=== PATIENT | female | born 1980 | race Caucasian/White ===

== ENCOUNTER 2018-09-28 06:40 | Inpatient (IN) | payer BC ==
[2018-09-28] VITALS (7 sets, daily range): BP systolic 122–147; BP diastolic 63–88; PULSE 60–67; RESP 16–18; Ht 162.6 cm; Wt 80.5 kg
[~2018-09-28] VITALS: Ht 162.6 cm; Wt 80.5 kg
[2018-09-28] MEDS ORDERED: OXYTOCIN 30 UNITS/LR 500 ML IV PRN ×2 (07:30→10:00)
[2018-09-28] MEDS ORDERED: CEFAZOLIN 2 GM/50 ML (PMX) 50 ML IVPB SCH (07:30)
[2018-09-28] MEDS ORDERED: OXYTOCIN 30 UNITS/LR 500 ML IV SCH ×2 (07:30→09:48)
[2018-09-28] MEDS ORDERED: CARBOPROST 250 MCG INJ IM PRN ×2 (07:30→10:00)
[2018-09-28] MEDS ORDERED: MISOPROSTOL 200 MCG TAB PR PRN ×2 (07:30→10:00)
[2018-09-28] MEDS ORDERED: METHYLERGONOVINE 0.2 MG INJ IM PRN ×2 (07:30→10:00)
[2018-09-28] MEDS ORDERED: AZITHROMYCIN 500MG/NS (PMX) 250 ML IV SCH (07:30)
--- NOTE | 2018-09-28 07:44 | PREAC ---
Date/Time of Note Date/Time of Note DATE: 09/28/18 TIME: 07:43 Anesthesia Eval and Record Evaluation Time Pre-Procedure Interview DATE: 09/28/18 TIME: 07:43 Age 38 Sex female NPO: 8 hrs Preoperative diagnosis labor pain Planned procedure csection, BTL Past Medical History Past Medical History: None Surgery & Anesthesia Issues No known issue Meds Anticoagulation: No Beta Lionel within 24 hr: No Reason Beta Lionel not given: Pt. not on B-Lionel Current Medications Lactated Ringer's 1,000 ml @ 125 mls/hr Q8H IV ; Start 09/28/18 at 07:17 Cefazolin Sodium/ Dextrose 50 ml @ 100 mls/hr ONCE IVPB ; Start 09/28/18 at 07:30 Oxytocin/Lactated Ringer's 500 ml @ 125 mls/hr POST IV ; Start 09/28/18 at 07:30 Azithromycin 250 ml @ 250 mls/hr ONCE IV ; Start 09/28/18 at 07:30 Oxytocin/Lactated Ringer's 500 ml @ 0 mls/hr ONCE PRN IV .VAGINAL BLEEDING; Start 09/28/18 at 07:30 Methylergonovine Maleate (Methergine) 0.2 mg ONCE PRN IM .VAGINAL BLEEDING; Start 09/28/18 at 07:30 Carboprost Tromethamine (Hemabate) 250 mcg ONCE PRN IM .VAGINAL BLEEDING; Start 09/28/18 at 07:30 Misoprostol (Cytotec) 1,000 mcg ONCE PRN NH .VAGINAL BLEEDING; Start 09/28/18 at 07:30 Meds reviewed: Yes Allergies Coded Allergies: No Known Allergy (Unverified , 09/28/18) Allergies Reviewed: Yes Labs/Studies Labs Reviewed: Reviewed by anesthesiologist Result Diagram: 09/28/18 0720 Laboratory Tests 09/28/18 07:20 test: Positive Studies: ECG (n/a), CXR (n/a) Pre-procedure Exam Last vitals Vital Signs Date Temp Pulse Resp B/P (MAP) Pulse Ox O2 O2 Flow FiO2 Time Delivery Rate 09/28/18 97.6 67 16 146/75 Room Air 07:02 (98) Airway: Adequate mouth opening Mallampati: Mallampati I Teeth: Normal Lung: Normal Heart: Normal ASA Physical Status ASA physical status: 2 Emergency: None Planned Anesthetic Neuraxial: Spinal Planned Pain Management Single shot nerve block Pre-operative Attestations Prior to commencing anesthesia and surgery, the patient was re-evaluated, there was verification of: *The patient's identity *The results of appropriate recent lab work and preoperative vital signs *The above evaluation not changing prior to induction *Anesthetic plan, risk benefits, alternative and complications discussed with patient/family; questions answered; patient/family understands, accepts and wishes to proceed. BETSY ROJAS MD Sep 28, 2018 07:44
[2018-09-28] MEDS: LACTATED RINGER'S 1,000 ML IV SCH (07:57)
[2018-09-28] MEDS ORDERED: morphine SULFATE/PF (10 MG/10 ML) INJ ONE (08:24)
[2018-09-28] MEDS ORDERED: METOCLOPRAMIDE 10 MG INJ ONE (08:24)
[2018-09-28] MEDS ORDERED: ONDANSETRON 4 MG INJ ONE (08:24)
[2018-09-28] MEDS ORDERED: OXYTOCIN 30 UNITS/LR 500 ML IV ONE ×2 (08:24→09:20)
[2018-09-28] MEDS ORDERED: EPHEDrine 25 MG/5 ML SYG ONE (08:39)
--- NOTE | 2018-09-28 09:45 | OPPN ---
Date/Time of Note Date/Time of Note DATE: 09/28/18 TIME: 09:42 Operative Report Planned Procedure Procedure date Sep 28, 2018 Procedure(s) repeat low transverse CD with bilateral tubal ligation clifton method Performed by see signature line Offset Duplicating Machine Operator: RAQUEL MOSQUEDA M.D. 2nd Offset Duplicating Machine Operator none Anesthesiologist: BETSY ROJAS MD Pre-procedure diagnosis iup at 39 wks ga, ama, in labor, previous CD, desire elective CD with bilateral tubal sterilization [id number] Anesthesia Type: [id number] spinal Post-Procedure Post-procedure diagnosis same Findings a viable female 9/9 weight 8lb 6 oz. khadar uterus tubes and ovaries Estimated Blood Loss: 500 - 600 mls Specimen(s) portions of right and left fallopian tubes Grafts/Implant(s) none Complication(s) none TWYLA HUGHES MD Sep 28, 2018 09:45
[2018-09-28] MEDS ORDERED: DIPHENHYDRAMINE 50 MG INJ IV PRN ×2 (10:00)
[2018-09-28] MEDS ORDERED: NACL 0.9% 3 ML SYG IV SCH (10:00)
[2018-09-28] MEDS ORDERED: NALOXONE (0.4 MG/ML) INJ IV PRN (10:00)
[2018-09-28] MEDS ORDERED: ONDANSETRON 4 MG INJ IV PRN ×2 (10:00)
[2018-09-28] MEDS ORDERED: MEPERIDINE 25 MG INJ IV PRN (10:00)
[2018-09-28] MEDS ORDERED: morphine 2 MG INJ IV PRN ×6 (10:00)
[2018-09-28] MEDS ORDERED: LANOLIN HPA 1 PKT TOP PRN (10:00)
--- NOTE | 2018-09-28 11:31 | OPR ---
DATE OF OPERATION: 09/28/2018 PREOPERATIVE DIAGNOSIS: Intrauterine at 39 weeks gestational age, advanced maternal age, i n labor, previous , desires elective repeat delivery with bilateral tubal steriliza tion. POSTOPERATIVE DIAGNOSIS: Intrauterine at 39 weeks gestational age, advanced maternal age, i n labor, previous , desires elective repeat delivery with bilateral tubal steriliza tion. OPERATION PERFORMED: Repeat low transverse delivery with bilateral tubal ligation, Kandice method. SURGEON: Harley Lo MD ELECTRIC MOTOR WINDER: Dr. Vitaly Clark. ANESTHESIOLOGIST: Anne Gardner MD. ANESTHESIA: Spinal. ESTIMATED BLOOD LOSS: 500 mL. PATHOLOGY: Portion of the right and left fallopian tube. FINDINGS: A viable female, 9 and 9 respectively at 1 and 5 minutes, weight 8 pounds 6 ounces. Normal uterus, tubes and ovaries. DESCRIPTION OF PROCEDURE: After explaining the risks, benefits and alternatives, the patient had con sent signed in chart, the patient was taken to the operating where spinal anesthesia was found to be adequate. She was then prepared and draped in normal sterile position with a leftward tilt. A Pfann enstiel incision was made with a scalpel and carried to the underlying of the fascia. The fascia was incised in midline, incision extended laterally with Sanchez scissors. The superior aspect of the fasc ial incision was grasped with curved clamps, elevated and the underlying rectus muscle dissected blun tly. Attention was then turned to the inferior aspect of the incision which in similar fashion was g rasped, tented up with curved clamps and the rectus muscles dissected off bluntly. The rectus muscle was in midline, peritoneum identified, tented up and entered sharply with Metzenbaum sciss ors. This incision was extended superiorly with good visualization of the bladder. The bladder blad e was then inserted and the lower uterine segment incised in a transverse fashion with a scalpel and extended laterally. The head was delivered atraumatically. Nose and mouth were suctioned and cord clamped and cut. The infant was handed off to awaiting engineering agent. The placenta was then rem julius and cleared of all clots and debris. The uterine incision was repaired with 0 Monocryl in a run eric locked fashion. A second layer of same suture was used for imbrication and excellent hemostasis . At this point, a Mulvane was used to grasp the right fallopian tube 4 cm from the cornual region. A 3 cm segment of tube was ligated and excised. Good hemostasis was noted. Similarly, the left fallop mars tube was ligated and excised. The uterus was returned to the abdomen. The gutters were cleared of all clots. The peritoneum and rectus abdominis muscles were reapproximated with 2-0 Monocryl in a n interrupted fashion. The fascia was reapproximated with 0 Vicryl in a running fashion. The subcut aneous tissue was reapproximated with 2-0 plain gut in a running fashion. The skin was closed with a bsorbable emmy. The patient tolerated the procedure well. All counts were correct. The patient was taken to recovery room in stable condition. Dictated By: HARLEY HICKS/WALTER Conf#: [id number] DID#: [id number]
--- NOTE | 2018-09-28 14:56 | PREOPHP ---
DATE OF ADMISSION: 09/28/2018 HISTORY OF PRESENT ILLNESS: Ms. Gongora is a 38-year-old 5, para 4, EDC 10/04/2018 intrauterin e at 39 weeks and 1 day gestational age, presented to triage complaining of regular contrac tions. She has a significant history of 1 previous and desires elective repeat de livery with double tubal sterilization. She currently denies any vaginal bleeding or discharge. Her care took place at [facility]. PAST MEDICAL HISTORY: None. MEDICATIONS: vitamins. PAST SURGICAL HISTORY: x1 previous section. OBSTETRICAL HISTORY: x3 vaginal deliveries, x1 delivery. GYNECOLOGIC HISTORY: 11, regular 3 to 4 days. Denies any sexually transmitted infections. Sexually active with 1 partner. SOCIAL HISTORY: Denies any smoking, drugs or alcohol. FAMILY HISTORY: None. REVIEW OF SYSTEMS: All within normal except history of present illness. PHYSICAL EXAMINATION: HEENT: Within normal. LUNGS: CTA bilateral. CARDIOVASCULAR: S1, S2, regular rhythm. ABDOMEN: Gravid, nontender. Negative CVA bilateral. EXTREMITIES: Negative edema. No calf tenderness. PELVIC: Vaginal exam 3 cm dilated, 50% effaced, -2 station. heart tracing category 1, typical regular contractions. ASSESSMENT: A 38-year-old 5, para 4, intrauterine at 39 weeks and 1 day gestation al age, advanced maternal age, in labor, previous x1, desires elective repeat deli very with bilateral tubal sterilization. Declined vaginal after . PLAN: Consent for repeat delivery with bilateral tubal sterilization. Risks, benefits and alternatives explained. All questions were answered. Dictated By: TWYLA HICKS/WALTER Conf#: [id number] DID#: [id number]
[2018-09-28] MEDS: CEFAZOLIN 2 GM/50 ML (PMX) 50 ML IVPB SCH (16:35)
[2018-09-29] MEDS: CEFAZOLIN 2 GM/50 ML (PMX) 50 ML IVPB SCH ×2 (00:13→08:03)
[2018-09-29 00:16] VITALS: BP 109/63; PULSE 71; RESP 20
[2018-09-29 03:45] VITALS: BP 107/62; PULSE 72; RESP 20
[2018-09-29 08:00] VITALS: BP 94/55; PULSE 73; RESP 18
[2018-09-29] MEDS ORDERED: CEFAZOLIN 2 GM/50 ML (PMX) 50 ML IVPB SCH (08:00)
--- NOTE | 2018-09-29 08:33 | PAC ---
Date/Time of Note Date/Time of Note DATE: 09/29/18 TIME: 08:33 Post-Anesthesia Notes Post-Anesthesia Note Last documented vital signs Vital Signs Date Temp Pulse Resp B/P (MAP) Pulse Ox O2 O2 Flow FiO2 Time Delivery Rate 09/29/18 99.0 72 20 107/62 98 Room Air 03:45 (77) Activity: WNL Respiratory function: WNL Cardiovascular function: WNL Mental status: Baseline Pain reasonably controlled: Yes Hydration appropriate: Yes Nausea/Vomiting absent: No BETSY ROJAS MD Sep 29, 2018 08:33
--- NOTE | 2018-09-29 08:34 | OPPN ---
Date/Time of Note Date/Time of Note DATE: 09/29/18 TIME: 08:33 Anesthesia Follow up Anesthesia Follow up Last documented vital signs Vital Signs Date Temp Pulse Resp B/P (MAP) Pulse Ox O2 O2 Flow FiO2 Time Delivery Rate 09/29/18 99.0 72 20 107/62 98 Room Air 03:45 (77) Respiratory function: WNL Cardiovascular function: WNL Comments A 38 year s/p spinal with duramorph fo [post op pain. POD #1 is doing fine. No pain, itching, neural deficit, headache, N/V, SOB. BETSY ROJAS MD Sep 29, 2018 08:34
[2018-09-29] MEDS ORDERED: OXYCODONE/ACETAMINOPHEN (5/325) TAB PO PRN (10:00)
[2018-09-29] MEDS: IBUPROFEN 600 MG TAB PO SCH ×3 (10:32→23:51)
[2018-09-29 16:15] VITALS: RESP 18
[2018-09-29 16:20] VITALS: BP 103/61; PULSE 78; RESP 16
[2018-09-29 21:00] VITALS: BP 98/53; PULSE 79; RESP 18
[2018-09-29] MEDS: FERROUS SULFATE (EC) 325 MG TAB PO SCH (21:02)
[2018-09-30] MEDS: OXYCODONE/ACETAMINOPHEN (5/325) TAB PO PRN ×2 (01:57→11:31)
[2018-09-30 03:24] VITALS: BP 111/66; PULSE 61; RESP 18
[2018-09-30] MEDS: IBUPROFEN 600 MG TAB PO SCH ×4 (05:36→23:58)
[2018-09-30 08:30] VITALS: BP 109/65; PULSE 72; RESP 18
[2018-09-30] MEDS: FERROUS SULFATE (EC) 325 MG TAB PO SCH ×2 (09:33→20:54)
[2018-09-30 18:02] VITALS: BP 133/77; PULSE 82; RESP 18
--- NOTE | 2018-09-30 20:37 | QN ---
Documentation Comment progress note pod 1 patient seen and evaluated no complaints vs stable afebrile ab c/d/i no distention exrtremity no edema no calf tenderness a/ sp cs pod 1 stable afebrile p encourage ambulation TWYLA HUGHES MD Sep 30, 2018 20:37
[2018-09-30] MEDS: SENNA/DOCUSATE NA (8.6MG/50MG) TAB PO SCH (20:54)
[2018-09-30 20:55] VITALS: BP 129/80; PULSE 80; RESP 18
[2018-09-30] MEDS ORDERED: SENNA TAB PO SCH (21:00)
[2018-10-01 03:30] VITALS: BP 119/70; PULSE 81; RESP 18
[2018-10-01] MEDS: IBUPROFEN 600 MG TAB PO SCH ×4 (06:00→23:43)
--- NOTE | 2018-10-01 07:11 | QN ---
Documentation Comment progress note pod 3 patient seen and evaluated no complaints vs stable afebrile ab c/d/i no distention exrtremity no edema no calf tenderness a/ sp cs pod 3 stable afebrile p encourage ambulation dulcolax suppostitory discharge home tomorrow TWYLA HUGHES MD Oct 01, 2018 07:11
--- NOTE | 2018-10-01 07:13 | PD.PPDC ---
FIELD SUPERVISOR Discharge Instruction Condition [id number] Patient Condition: Ptvhx3e Fair Diet Qavwu2Ls Diet: Scxzt7l Resume Regular Diet Activity/Restrictions [id number] Activity: Pkoyp7b Normal Activity May Shower Ztlrt1Cz Restrictions: Pdjfh5f No Exercising No Lifting No Driving No Sexual Activity Nothing in the Vagina No Norris No Tampons, douche Wound/Drain Care Instructions Wraft5Pm Wound/Drain Care Instructions: Ijfzm2f Wash with soap and water Keep clean and dry Follow-up Follow-up with Physician: 2, Week/Weeks Return to clinic for [id number] DRAFTER Instructions: Vnonb3b Fever greater than 101 Chills Worsening abdominal pain Excessive Vaginal Bleeding More than 2 pads per hour Unable to tolerate diet Vathw4Gm OB Instructions: Vkgtr2w Breast Tenderness Depression Blurried Vision Headache [id number] Surgical Instructions: Nazhg5u Incisional Drainage Incisional Redness TWYLA HUGHES MD Oct 01, 2018 07:13
[2018-10-01] MEDS ORDERED: BISACODYL 10 MG SUPP PR ONE (07:30)
[2018-10-01 08:00] VITALS: BP 130/83; PULSE 80; RESP 18
[2018-10-01] MEDS: FERROUS SULFATE (EC) 325 MG TAB PO SCH ×2 (09:33→21:01)
[2018-10-01] MEDS: SENNA/DOCUSATE NA (8.6MG/50MG) TAB PO SCH ×2 (09:33→21:01)
[2018-10-01 15:50] VITALS: BP 134/78; PULSE 80; RESP 18
[2018-10-01 20:10] VITALS: BP 129/79; PULSE 70; RESP 18
[2018-10-02 03:45] VITALS: BP 111/64; PULSE 71; RESP 19
[2018-10-02] MEDS: IBUPROFEN 600 MG TAB PO SCH ×2 (05:27→12:26)
[2018-10-02] MEDS ORDERED: BISACODYL 10 MG SUPP PR ONE (05:30)
--- NOTE | 2018-10-02 06:37 | DS ---
DATE OF ADMISSION: 09/28/2018 DATE OF DISCHARGE: 10/02/2018 PRIMARY DIAGNOSIS: Intrauterine at 39 weeks gestational age, advanced maternal age, in lab or, previous , desires elective repeat delivery with bilateral tubal sterilization. PROCEDURE: Repeat low transverse delivery with bilateral tubal ligation. CONDITION ON DISCHARGE: Stable. ACTIVITY: None per vagina, no heavy lifting x6 weeks. DIET: Regular. MEDICATIONS ON DISCHARGE: 1. Motrin. 2. Percocet. 3. Iron. 4. Colace. DISCHARGE SUMMARY: Ms. Kerry Gongora underwent a repeat low transverse delivery with bilatera l tubal ligation on 09/28/2018. She had a viable female, 9 and 9 respectively at 1 and 5 minut es, weight 8 pounds 6 ounces. She had an uneventful postop day #1, #2, and #3. She will be discharg ed on postop day #4 after she has a bowel movement. She denies any headache, nausea, vomiting, short ness of breath, or visual changes. She will follow up in the clinic in 2 weeks for /postop care. Dictated By: TWYLA HICKS/WALTER Conf#: [id number] DID#: [id number]
[2018-10-02 08:11] VITALS: BP 121/74; PULSE 73; RESP 18
[2018-10-02] MEDS: FERROUS SULFATE (EC) 325 MG TAB PO SCH (09:09)
[2018-10-02] MEDS: SENNA/DOCUSATE NA (8.6MG/50MG) TAB PO SCH (09:09)
[2018-10-02] MEDS: OXYCODONE/ACETAMINOPHEN (5/325) TAB PO PRN (14:16)
== END 2018-10-02 17:59 | disposition home or self-care (01) | DRG 785 ==
LOC: OBT 06:40 → L-D 06:40 → OBT 07:10 → L-D 08:44 → PP1 12:06
PROVIDERS: ADMIT Obstetrics & Gynecology; ATTEND Obstetrics & Gynecology
PROC: 0UB70ZZ Excision of Bilateral Fallopian Tubes, Open Approach (ICD-10-PCS; 2018-09-28)
PROC: 10D00Z1 Extraction of Products of Conception, Low, Open Approach (ICD-10-PCS; principal; 2018-09-28 08:00)
DX: O34.211 Maternal care for low transverse scar from previous cesarean delivery (principal); Z3A.39 39 weeks gestation of pregnancy; Z37.0 Single live birth; Z30.2 Encounter for sterilization
CPT/HCPCS: 80053; 81001; 84560; 85025; 85384; 85610; 85730; 86592; 86850; 86900; 86901; 87340; 88302; 99464; G0463; J0456; J0690; J2210; J2270; J2274; J2405; J2590; J2765; J7120